=== PATIENT | female | born 1935 | race Caucasian/White ===

== ENCOUNTER 2021-03-09 13:18 | Outpatient (REF) | payer MEDICARE, SELFPAY ==
[2021-03-09 14:38] VITALS: BP 167/85; PULSE 56; RESP 24; TEMP 36.6; O2SAT 95
[2021-03-09 14:39] VITALS: BMI 37.8
== END 2021-03-09 13:19 | disposition home or self-care (01) ==
LOC: HO.MS 13:18
PROVIDERS: PCP Family Medicine; Visit Provider Ophthalmology
PROC: (CPT 66821; principal; 2021-03-09 13:40)
DX: H26.491 Other secondary cataract, right eye (principal); Z96.1 Presence of intraocular lens; E11.9 Type 2 diabetes mellitus without complications; I10 Essential (primary) hypertension; Z87.891 Personal history of nicotine dependence; Z91.041 Radiographic dye allergy status; Z79.4 Long term (current) use of insulin; Z79.899 Other long term (current) drug therapy
CPT/HCPCS: 66821

== ENCOUNTER 2021-03-23 12:36 | Outpatient (REF) | payer MEDICARE, SELFPAY ==
[2021-03-23 12:43] VITALS: BMI 36.6
[2021-03-23 12:45] VITALS: BP 157/71; PULSE 64; RESP 20; TEMP 36.4; O2SAT 96
== END 2021-03-23 12:37 | disposition home or self-care (01) ==
LOC: HO.MS 12:36
PROVIDERS: PCP Family Medicine; Visit Provider Ophthalmology
PROC: (CPT 66821; principal; 2021-03-23 13:20)
DX: H26.492 Other secondary cataract, left eye (principal); H35.031 Hypertensive retinopathy, right eye; I10 Essential (primary) hypertension; E11.3292 Type 2 diabetes mellitus with mild nonproliferative diabetic retinopathy without macular edema, left eye; Z96.1 Presence of intraocular lens; Z79.4 Long term (current) use of insulin; Z79.899 Other long term (current) drug therapy; Z87.891 Personal history of nicotine dependence
CPT/HCPCS: 66821